=== PATIENT | female | born 1945 | race Caucasian/White ===

== ENCOUNTER 2021-04-29 09:00 | Outpatient (CLI) | payer OTHER | END 2021-04-29 09:30 | disposition home or self-care (01) | LOC: PPH VACUNA 09:00 | PROVIDERS: ATTEND Emergency Medicine Pediatric Emergency Medicine | DX: Z23 Encounter for immunization (principal) ==

== ENCOUNTER 2021-05-23 09:00 | Outpatient (CLI) | payer OTHER | END 2021-05-23 09:15 | disposition home or self-care (01) | LOC: PPH VACUNA 09:00 | PROVIDERS: ATTEND Emergency Medicine Pediatric Emergency Medicine | DX: Z23 Encounter for immunization (principal) ==